=== PATIENT | male | born 1995 | race Caucasian/White ===

== ENCOUNTER 2017-03-09 03:54 | Emergency (ER) | payer OTHER ==
[~2017-03-09] VITALS: Ht 175.3 cm; Wt 63.5 kg
[2017-03-09 04:17] VITALS: BP_SYST 147
--- NOTE | 2017-03-09 04:17 | NUR ---
Patient to ER bed 5 to gown for evaluation. Side rails up. Report given to TASIA PALACIOS.
--- NOTE | 2017-03-09 04:19 | NUR ---
Patient AAOx3, ambulatory. Patient states he "wants to kill himself"; patient stated he has thought of "taking too many pills or hanging himself" but has not acted on those thoughts. Patient denies command voices at this time. Patient denies pain at this time. Patient denies any other complaints.
--- NOTE | 2017-03-09 04:24 | NUR ---
ER at bedside examining patient.
--- NOTE | 2017-03-09 04:34 | NUR ---
Patient calmly resting in ER bed, no signs of distress noted. Symmetric rise and fall of chest noted. Patietn denies any complaints.
--- NOTE | 2017-03-09 04:40 | NUR ---
# 20 gauge angiocath placed to left AC. Use of asceptic technique. Blood return noted. Blood for lab drawn from site. Flushed with 10 cc of normal saline. No evidence of infiltration noted. Patient tolerated well.
--- NOTE | 2017-03-09 04:49 | NUR ---
Patient calmly resting in ER bed, no signs of distress noted. Symmetric rise and fall of chest noted. Patietn denies any complaints.
[2017-03-09 05:02] LABS: BILIRUBIN,URINE NEGATIVE (NEGATIVE); BLOOD, URINE NEGATIVE (NEGATIVE); CLARITY/URINE CLEAR (CLEAR); COLOR,URINE YELLOW (YELLOW); GLUCOSE,URINE NEGATIVE (NEGATIVE); KETONES,URINE NEGATIVE (NEGATIVE); LEUKOCYTE ESTERASE ,URINE NEGATIVE (NEGATIVE); NITRITE, URINE NEGATIVE (NEGATIVE); PROTEIN URINE NEGATIVE (NEGATIVE); UROBILINOGEN,URINE 0.2 (0.2-1.0)
--- NOTE | 2017-03-09 05:04 | NUR ---
Patient calmly resting in ER bed, no signs of distress noted. Symmetric rise and fall of chest noted. Patietn denies any complaints.
--- NOTE | 2017-03-09 05:19 | NUR ---
Patient calmly resting in ER bed, no signs of distress noted. Symmetric rise and fall of chest noted. Patietn denies any complaints.
--- NOTE | 2017-03-09 05:34 | NUR ---
Patient calmly resting in ER bed, no signs of distress noted. Symmetric rise and fall of chest noted. Patietn denies any complaints.
[2017-03-09] MEDS: NACL 0.9% 1,000 ML IV ONE ×2 (05:42→06:48)
[2017-03-09 05:44] LABS: BARBITURATE, URINE NEGATIVE (NEG <=200); BENZODIAZEPINE, URINE NEGATIVE (NEG <=150); CANNABINOID, URINE NEGATIVE (NEG <=50); COCAINE, URINE NEGATIVE (NEG <=150); METHAMPHETAMINES SCREEN,URINE POSITIVE (NEG <=500); OPIATE, URINE NEGATIVE (NEG <=100); PHENCYCLIDINE SCREEN,URINE NEGATIVE (NEG <=25); UR TRICYCLIC ANTIDEPRESSANTS NEGATIVE (NEG <=300); URINE AMPHETAMINE NEGATIVE (NEG <=500); URINE METHADONE NEGATIVE (NEG <=200); URINE OXYCODONE SCREEN NEGATIVE (NEG <=100); URINE PROPOXYPHENE SCREEN NEGATIVE (NEG <=300)
--- NOTE | 2017-03-09 05:49 | NUR ---
Patient calmly resting in ER bed, no signs of distress noted. Symmetric rise and fall of chest noted. Patietn denies any complaints.
[2017-03-09 05:50] LABS: BASOPHILS % (AUTO) 0.6 % (0.0-2.0); EOSINOPHILS # (AUTO) 0.1 K/uL (0.0-0.4); EOSINOPHILS % (AUTO) 1.9 % (0.0-4.0); HEMATOCRIT 53.9 % (36-54); HEMOGLOBIN 17.6 g/dL (14.0-18.0); LYMPHOCYTES # (AUTO) 1.2 K/uL (1.0-5.5); LYMPHOCYTES % (AUTO) 25.5 % (20.5-51.5); MEAN CORPUSCULAR HEMOGLOBIN 33 pg (27-31); MEAN CORPUSCULAR HGB CONC 33 % (32-36); MEAN CORPUSCULAR VOLUME 102 fL (79.0-98.0); MONOCYTES # (AUTO) 0.5 K/uL (0.0-1.0); MONOCYTES % (AUTO) 10.4 % (1.7-9.3); NEUTROPHILS # (AUTO) 2.9 K/uL (1.8-7.7); NEUTROPHILS % (AUTO) 61.6 % (40.0-70.0); PLATELET COUNT (AUTO) 168 K/uL (130-430); RED BLOOD CELL COUNT(AUTO) 5.28 MIL/uL (4.2-6.2); RED CELL DISTRIBUTION WIDTH 12.4 % (9.0-15.0); WHITE BLOOD COUNT (AUTO) 4.7 K/uL (4.8-10.8)
[2017-03-09 05:58] LABS: ANION GAP 8 (5-15); CALCIUM 9.4 mg/dL (8.4-11.0); CHLORIDE 103 mmol/L (98-107); CREATININE 0.65 mg/dL (0.55-1.30); GLUCOSE 114 mg/dL (70-99); POTASSIUM 3.4 mmol/L (3.5-5.1); SODIUM SERUM 142 mmol/L (136-145); UREA NITROGEN, BLOOD 2 mg/dL (8-21)
[2017-03-09 05:59] LABS: GFR AFRICAN AMERICAN 199 mL/min (>90)
[2017-03-09 06:03] LABS: ALANINE AMINOTRANSFERASE 54 U/L (12-78); ALBUMIN 4.1 g/dL (3.4-4.8); ALCOHOL, BLOOD 200 mg/dL (<10); AMYLASE 32 U/L (0-100); ASPARTATE AMINOTRANSFERASE 49 U/L (10-37); LIPASE 202 U/L (73-393); TOTAL BILIRUBIN 0.7 mg/dL (0.0-1.0)
--- NOTE | 2017-03-09 06:04 | NUR ---
Patient calmly resting in ER bed, no signs of distress noted. Symmetric rise and fall of chest noted. Patietn denies any complaints.
[2017-03-09 06:10] LABS: PROTHROMBIN TIME 10.2 SECS (9.5-12.5)
--- NOTE | 2017-03-09 06:19 | NUR ---
Patient calmly resting in ER bed, no signs of distress noted. Symmetric rise and fall of chest noted. Patietn denies any complaints.
--- NOTE | 2017-03-09 06:34 | NUR ---
Patient calmly resting in ER bed, no signs of distress noted. Symmetric rise and fall of chest noted. Patietn denies any complaints.
[2017-03-09] MEDS ORDERED: THIAMINE HCL 100 MG/ML VIAL ONE (06:38)
[2017-03-09] MEDS ORDERED: MAGNESIUM SULFATE 1 GM/2 ML VIAL ONE (06:38)
[2017-03-09] MEDS ORDERED: MVI 10 ML VIAL IV ONE (06:38)
[2017-03-09] MEDS ORDERED: FOLIC ACID 5 MG/ML VIAL IV ONE (06:38)
[2017-03-09] MEDS: FOLIC ACID 1 MG, THIAMINE HCL 100 MG, MAGNESIUM SULFATE 1 GM, MVI 10 ML in NACL 0.9% 1,... IV ONE (06:48)
--- NOTE | 2017-03-09 06:49 | NUR ---
Patient calmly resting in ER bed, no signs of distress noted. Symmetric rise and fall of chest noted. Patietn denies any complaints.
--- NOTE | 2017-03-09 07:04 | NUR ---
Patient calmly resting in ER bed, no signs of distress noted. Symmetric rise and fall of chest noted. Patietn denies any complaints.
--- NOTE | 2017-03-09 07:15 | NUR ---
Care endorsed to day shift RN.
--- NOTE | 2017-03-09 07:56 | NUR ---
Patient to be transferred to [facility]. Is being transferred due to higher level of care. Receiving facility has accepting physician and available space. ER physician has signed transfer form. Patient or responsible alliance party has agreed to transfer and signed form. Patient belongings inventoried and will be sent with patient. Copy of nursing notes, lab reports, EKG, Physicians Orders and X-rays to be sent with patient. Report called to Taty at receiving facility. Receiving physician is Dr. Melo. [facility] has been called for transfer. ETA is [id number].
[2017-03-09 07:57] VITALS: BP_SYST 133
== END 2017-03-09 07:57 ==
LOC: SED 03:54
DX: R45.851 Suicidal ideations (principal); J45.909 Unspecified asthma, uncomplicated; I10 Essential (primary) hypertension; F15.10 Other stimulant abuse, uncomplicated; R78.0 Finding of alcohol in blood
CPT/HCPCS: 36415; 71045; 80053; 80307; 81003; 82150; 83690; 85025; 85610; 85730; 93005; 96361; 96365; 99285; G0481; G0482; J3411; J3475; J3490; J7030